=== PATIENT | female | born 1995 | race Caucasian/White ===

== ENCOUNTER 2018-06-06 04:17 | Emergency (ER) | payer OTHER, SELFPAY ==
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
[2018-06-06] MEDS ORDERED: MUPIROCIN 2% OINT 22GM TUBE TOP ONE (05:22)
[2018-06-06] MEDS ORDERED: DOXYCYCLINE 100 MG CAP PO ONE (05:22)
[2018-06-06] MEDS ORDERED: SMZ./TMP. 800/160 MG TABLET ONE (05:22)
[2018-06-06] MEDS ORDERED: TETANUS & DIPHTHERIA TOX,ADULT 0.5 ML VIAL ONE (05:22)
[2018-06-06 05:43] LABS: Urine Blood TRACE (NEG); Urine Glucose NEGATIVE (NEG); Urine Protein NEGATIVE (NEG); Urine Specific Gravity >1.030 (1.005-1.030); Urine pH 5.5 (5.0-7.0)
== END 2018-06-06 05:27 | disposition home or self-care (01) ==
LOC: ER 04:17
DX: L03.113 Cellulitis of right upper limb (principal); T22.211A Burn of second degree of right forearm, initial encounter; X08.8XXA Exposure to other specified smoke, fire and flames, initial encounter; F17.210 Nicotine dependence, cigarettes, uncomplicated; Z23 Encounter for immunization
CPT/HCPCS: 81003; 81025; 90471; 90714; 99284

== ENCOUNTER 2018-06-23 03:57 | Emergency (ER) | payer SELFPAY ==
[2018-06-23 04:23] LABS: Absolute Lymphocytes (CBC) 2.1 K/uL (0.7-4.9); Absolute Monocytes 0.3 K/uL (0.1-1.3); Absolute Neutrophil 5.5 K/uL (1.8-8.0); Basophils % 0.8 % (0-1.3); Eosinophils % 0.6 % (0-4.4); Hematocrit 39.1 % (36.0-45.0); Lymphocytes % 26.2 % (15.3-44.8); Monocytes % 3.6 % (3.3-12.3); RBC Red Blood Cell Count 4.67 M/uL (3.86-4.86)
[2018-06-23] MEDS ORDERED: ONDANSETRON 4 MG/2 ML VIAL ONE (04:28)
[2018-06-23] MEDS ORDERED: NA CHLORIDE 0.9% 1,000 ML ONE (04:30)
[2018-06-23 04:33] LABS: Protime INR 1.1
[2018-06-23 04:43] LABS: ALT/SGPT 30 U/L (12-78); AST/SGOT 21 U/L (15-37); Alkaline Phosphatase 74 U/L (45-117); BUN Blood Urea Nitrogen 6 mg/dL (7-18); Bicarbonate 26 mmol/L (21-32); Bilirubin Direct < 0.1 mg/dL (0-0.2); Bilirubin Total 0.3 mg/dL (0.2-1.0); Glucose Level 121 mg/dL (74-106); Potassium 3.6 mmol/L (3.5-5.1); Protein, Total 8.3 g/dL (6.4-8.2); Sodium Level 144 mmol/L (136-145)
[2018-06-23 04:48] LABS: Barbiturates NEGATIVE (NEGATIVE); Benzodiazepines NEGATIVE (NEGATIVE); Cocaine NEGATIVE (NEGATIVE); METHAMPHETAM NEGATIVE (NEGATIVE); Methadone NEGATIVE (NEGATIVE); Opiates NEGATIVE (NEGATIVE); Phencyclidine NEGATIVE (NEGATIVE); THC Cannibis NEGATIVE (NEGATIVE)
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
--- NOTE | 2018-06-23 05:01 | EDPHYS ---
Physician Documentation [facility] Name: Tila Slater Age: 23 yrs Sex: Female : 1995 Arrival Date: 06/23/2018 Time: 03:59 Bed 4 Private MD: ED Physician Rashi Cervantes HPI: 06/23 04:12 This 23 yrs old Female presents to ER via Wheelchair with complaints of tw4 SYNCOPE AFTER DRINKING. 04:12 The patient has experienced syncope. tw4 Historical: - Allergies: 04:02 No Known Allergies; tl2 - Home Meds: 04:02 None [Active]; tl2 - PMHx: 04:02 None; tl2 - PSHx: 04:02 None; tl2 - Immunization history:: Adult Immunizations up to date. - Social history:: Smoking status: Patient uses tobacco products, denies chronic smoking, but will smoke occasionally, Patient uses alcohol. - Ebola Screening: : No symptoms or risks identified at this time. ROS: 04:17 Neuro: Positive for syncope, Negative for altered mental status, dizziness, gait tw4 disturbance, headache, tinnitus, tremor, weakness. 04:17 Constitutional: Negative for fever, chills, and weight loss, Cardiovascular: Negative tw4 for chest pain, palpitations, and edema, Respiratory: Negative for shortness of breath, cough, wheezing, and pleuritic chest pain, Back: Negative for injury and pain, MS/Extremity: Negative for injury and deformity, Skin: Negative for injury, rash, and discoloration. 04:17 Abdomen/GI: Positive for abdominal pain, nausea and vomiting, nausea, vomiting, and diarrhea, nausea, vomiting. Exam: 04:17 Constitutional: This is a well developed, well nourished patient who is awake, alert, tw4 and in no acute distress. Head/Face: Normocephalic, atraumatic. Chest/axilla: Normal chest wall appearance and motion. Nontender with no deformity. No lesions are appreciated. Cardiovascular: Regular rate and rhythm with a normal S1 and S2. No gallops, murmurs, or rubs. Normal PMI, no JVD. No pulse deficits. Respiratory: Lungs have equal breath sounds bilaterally, clear to auscultation and percussion. No rales, rhonchi or wheezes noted. No increased work of breathing, no retractions or nasal flaring. Abdomen/GI: Soft, non-tender, with normal bowel sounds. No distension or tympany. No guarding or rebound. No evidence of tenderness throughout. MS/ Extremity: Pulses equal, no cyanosis. Neurovascular intact. Full, normal range of motion. Neuro: Awake and alert, GCS 15, oriented to person, place, time, and situation. Cranial nerves II-XII grossly intact. Motor strength 5/5 in all extremities. Sensory grossly intact. Cerebellar exam normal. Normal gait. Vital Signs: 04:02 BP 138 / 114; Pulse 110; Resp 22; Temp 97.7(O); Pulse Ox 100% on R/A; Weight 113.4 kg; tl2 Height 5 ft. 5 in. (165.10 cm); Pain 7/10; 05:16 BP 122 / 102; Pulse 104; Resp 18; Pulse Ox 100% on R/A; tl2 04:02 Body Mass Index 41.60 (113.40 kg, 165.10 cm) tl2 MDM: 03:59 Patient medically screened. tw4 04:17 Differential Diagnosis: aortic aneurysm, cardiac arrhythmia, drug effect, emotional tw4 response, GI bleed, idiopathic syncope. Data reviewed: vital signs, nurses notes. Counseling: I had a detailed discussion with the patient and/or guardian regarding: the historical points, exam findings, and any diagnostic results supporting the discharge/admit diagnosis. 06/23 03:59 Order name: Acetaminophen; Complete Time: 04:57 [facility] 06/23 04:58 Interpretation: Normal except: ACETA < 2.0. 06/23 03:59 Order name: Basic Metabolic Panel; Complete Time: 04:58 06/23 04:58 Interpretation: Normal except: CL 111; GLUC 121; BUN 6. 06/23 03:59 Order name: CBC with Diff; Complete Time: 04:58 06/23 04:58 Interpretation: Within normal limits. 06/23 03:59 Order name: ETOH Level; Complete Time: 04:58 06/23 04:58 Interpretation: Normal except: ETOH 171. 06/23 03:59 Order name: Hepatic Function; Complete Time: 04:58 [facility] 06/23 04:58 Interpretation: Normal except: TP 8.3; GLOB 4.3; A/G 0.9. 06/23 03:59 Order name: PT-INR; Complete Time: 04:58 06/23 04:58 Interpretation: Normal except: PT 12.9. 06/23 03:59 Order name: Ptt, Activated; Complete Time: 04:58 06/23 04:59 Interpretation: Within normal limits: PTT 32.1. 06/23 03:59 Order name: Salicylate; Complete Time: 04:58 06/23 04:58 Interpretation: Normal except: PRINCE 2.4. 06/23 03:59 Order name: Urine Drug Screen; Complete Time: 04:59 06/23 04:59 Interpretation: Within normal limits. 06/23 03:59 Order name: EKG; Complete Time: 04:00 06/23 03:59 Order name: EKG - Nurse/Tech; Complete Time: 04:25 06/23 03:59 Order name: IV Saline Lock; Complete Time: 04:07 06/23 03:59 Order name: Labs collected and sent; Complete Time: 04:07 06/23 03:59 Order name: Urine Dipstick-Ancillary (obtain specimen); Complete Time: 04:25 4 EC:17 Rate is 90 beats/min. Rhythm is regular with Right bundle branch block. QRS [place] is tw4 Normal. ME interval is normal. QRS interval is normal. No Q waves. T waves are Normal. No ST changes noted. Clinical impression: NSR w/ Non-specific ST/T Changes. Interpreted by me. Reviewed by me. Administered Medications: 04:15 CANCELLED (Duplicate Order): Zofran 4 mg IVP once; over 2 minutes bb 04:16 CANCELLED (Duplicate Order): NS 0.9% 1000 ml IV at 1 bolus Per protocol; 1000 mL bolus bb 04:25 Drug: Zofran 4 mg Route: IVP; Site: left antecubital; bb 05:20 Follow up: Response: No adverse reaction tl2 04:25 Drug: NS 0.9% 1000 ml Route: IV; Rate: 1 bolus; Site: left antecubital; bb 05:19 Follow up: IV Status: Completed infusion; IV Intake: 1000ml tl2 Disposition: 06/23/18 05:00 Discharged to Home. Impression: Alcohol use, unspecified with intoxication. - Condition is Stable. - Discharge Instructions: Alcohol Intoxication. - Medication Reconciliation Form, Thank You Letter, Antibiotic Education, Prescription Opioid Use form. - Follow up: Private Physician; When: Upon discharge from the Emergency Department; Reason: If symptoms return, Recheck today's complaints, Continuance of care. - Problem is new. - Symptoms have improved. Signatures: Dispatcher [employer] EDMS Palak Oneal RN RN bb Amina Albright RN RN tl2 Rashi Cervantes MD MD tw4 Corrections: (The following items were deleted from the chart) 04:15 04:15 Zofran 4 mg IVP once; over 2 minutes ordered. tw bb 04:16 04:15 NS 0.9% 1000 ml IV at 1 bolus Per protocol; 1000 mL bolus ordered. tw bb 04:23 04:17 Constitutional: Negative for fever, chills, and weight loss, Eyes: Negative for tw4 injury, pain, redness, and discharge, Cardiovascular: Negative for chest pain, palpitations, and edema, Respiratory: Negative for shortness of breath, cough, wheezing, and pleuritic chest pain, Abdomen/GI: Negative for abdominal pain, nausea, vomiting, diarrhea, and constipation, Back: Negative for injury and pain, MS/Extremity: Negative for injury and deformity, Skin: Negative for injury, rash, and discoloration, tw4 05:21 05:00 06/23/2018 05:00 Discharged to Home. Impression: Alcohol use, unspecified with tl2 intoxication. Condition is Stable. Forms are Medication Reconciliation Form, Thank You Letter, Antibiotic Education, Prescription Opioid Use. Follow up: Private Physician; When: Upon discharge from the Emergency Department; Reason: If symptoms return, Recheck today's complaints, Continuance of care. Problem is new. Symptoms have improved. tw4
--- NOTE | 2018-06-23 07:52 | EKG ---
Test Date: 2018-06-23 Test Time: 04:21:02 Senior C Software Developer: DAREK MEASUREMENT RESULTS: Intervals: Rate: 90 MI: 152 QRSD: 94 QT: 358 QTc: 437 [place]: P: 61 MI: 152 QRS: 86 T: 51 INTERPRETIVE STATEMENTS: Normal sinus rhythm with sinus arrhythmia Incomplete right bundle branch block Borderline ECG No previous ECG available for comparison Electronically Signed On 06-23-18 07:52:18 CDT by Boone Lucero
== END 2018-06-23 05:21 | disposition home or self-care (01) ==
LOC: ER 03:57
DX: F10.929 Alcohol use, unspecified with intoxication, unspecified (principal); R55 Syncope and collapse; Z72.0 Tobacco use
CPT/HCPCS: 36415; 51702; 80048; 80076; 80307; 80320; 80329; 85025; 85610; 85730; 93005; 96361; 96374; 99284; J2405; J7030

== ENCOUNTER 2023-11-10 20:02 | Emergency (ER) | payer SELFPAY ==
--- OUTSIDE RECORDS SUMMARY | 2023-11-10 20:05 | XMS REPORT | Continuity of Care Document ---
Author Name Unknown Address [address] [facility] [place], [place] [id number] [place] [address] thconnect Address [address] [facility] [place] [address] Care Team Providers Care Hull Grinder Name Role Phone TIFFANIE PAUL Primary Care Physician Unavaila ble [facility] Attending Clinician BARRON Alberts Attending Clinician Unavaila ble BARRON AGUIRRE Attending Clinician Unavaila ble [facility] Admitting Clinician Unavail able Payers Payer Name Policy Type Policy Number Effective Date Expirati on Date Source Allergies, Adverse Reactions, Alerts Allergy Name Allergy Type Status Severity Reaction(s) Onset Date Inactive Date Treating Clinician Comments Source NO KNOWN ALLERGIE S Drug Class Active [facility] Encounters Start Date/Time End Date/Time Encounter Type Admission Type Attending [facility] Facility Care Department Encounter ID Source 2023-03-11 15:02:00 2023-03-11 15:02:00 Outpatient [facility] [id number] Farzad Neto [place] 2022-12-11 00:00:00 2022-12-11 00:00:00 Outpatient [facility] PRIV PRIV [id number] [facility] 2022-10-12 09:09:53 2022-10-12 09:09:53 Outpatient [facility] [id number] Farzad Neto [place] 2022-10-11 09:39:38 2022-10-11 09:39:38 Outpatient [facility] [id number] Farzad Niño 2021-05-11 08:00:00 2021-05-11 08:00:00 Outpatient R BARRON AGUIRRE CHERYAL [facility] [id number] [facility] 2021-05-11 08:00:00 2021-05-11 08:00:00 Outpatient BARRON DIAL CHERYAL [facility] [id number] [facility] Results Test Description Test Time Test Comments Results Result Co mments Source TRICHOMONAS, NAAT, [id number] 13:35:43* Test Item Value Reference Range Interpretation Comme nts TRICHOMONAS, NAAT (test code = 35830) NEGATIVE NEGATIVE IMPORTANT NO JACOB: SEE ANNOUNCEMENT AT [email or web address] [email or web address] Note: Assay methodology is nucleic acid amplification by sign writer letterer or painter mediated amplification (TMA) and Hybridization Protection Assay (HPA) utilizing the [employer] APTIMA platform. A negative result does not exclude low level infection, specimensampling error, or collection error. CT/NG, NAAT, [id number] 13:35:00* Test Item Value Reference Range Interpretation Comme nts GONORRHEA, NAAT (test code = 16967) NEGATIVE NEGATIVE IMPORTANT NO JACOB: SEE ANNOUNCEMENT AT [email or web address] Red Wagon Technologies/Arpit Progressive CaresUrineKit Note: Assay methodology is nucleic acid amplification by sign writer letterer or painter mediated amplification (TMA) utilizing the Aptima Combo 2 Assay. CHLAMYDIA, NAAT (test code = 62368) NEGATIVE NEGATIVE IMPORTANT NO JACOB: SEE ANNOUNCEMENT AT [email or web address] Red Wagon Technologies/Arpit Progressive CaresUrineKit Note: Assay methodology is nucleic acid amplification by sign writer letterer or painter mediated amplification (TMA) utilizing the Aptima Combo 2 Assay. UNLESS OTHERWISE INDICATED, ALL TESTING PERFORMED [facility] [address] [place] [address] BIT SHARPENER OPERATOR: PHILLIP MELENDEZ M.D. CLIA NUMBER [id number] [place]. [id number] CHLAMYDIA, NAAT, [id number] 18:15:43* Test Item Value Reference Range Interpretation Comme nts CHLAMYDIA, NAAT (test code = 28042) POSITIVE NEGATIVE A IMPORTANT NO JACOB: SEE ANNOUNCEMENT AT [email or web address] heCobasUrineKit Note: Assay methodology is nucleic acid amplification by sign writer letterer or painter mediated amplification (TMA) utilizing the Aptima Combo 2 Assay. GONORRHEA, NAAT, [id number] 18:15:43* Test Item Value Reference Range Interpretation Comme nts GONORRHEA, NAAT (test code = 50106) NEGATIVE NEGATIVE IMPORTANT NO JACOB: SEE ANNOUNCEMENT AT [email or web address] heCobasUrineKit Note: Assay methodology is nucleic acid amplification by sign writer letterer or painter mediated amplification (TMA) utilizing the Aptima Combo 2 Assay. UNLESS OTHERWISE INDICATED, ALL TESTING PERFORMED [facility], [facility]. [address] [place] [address] BIT SHARPENER OPERATOR: PHILLIP MELENDEZ M.D. [place] NUMBER [id number] [place]. [id number] PAP TEST, THINPREP, [id number] 18:01:32* Test Item Value Reference Range Interpretation Comme nts SOURCE: (test code = 8001) Cervical SLIDES: (test code = 8011) 1 LMP: (test code = 8021) 06/24/2021 SPECIMEN ADEQUACY: (test code = 25575) (NOTE) Satisfactory for evaluation. Endocervical cells/transformation zone component present. INTERPRETATION: (test code = 90432) NILM/NO EPITH. ABNORMALITY;SEE BELOW --- - NEGATIVE FOR INTRAEPITHELIAL LESION OR MALIGNANCY (NILM) ---- OTHER COMMENTS: (test code = 8081) (NOTE) Trichomonas vagi nalis present. WEBMASTER : (test code = 8101) ALIYAH Starks(A [facility] LOCATION: (test code = 15127) (NOTE) Specimens proces sed and interpreted at [facility], [address] [place], [place] [address], , CLIA: [id number] CPT: (test code = 8140) (NOTE) [address]808 UNLESS OTH ERWISE INDICATED, COMPUTER AIDED AND WEBMASTER SCREENING PERFORMED. The Pap test is a screening test with an inherent, but low probability of error. Your patient should be reminded to consult you immediately if she experiences any suspicious signs or symptoms, regardless of her Pap test result. An alternate report format containing images or consolidated prior Pap history is available as applicable. UNLESS OTHERWISE INDICATED, ALL TESTING PERFORMED [facility], [facility]. [address] [place] [address] BIT SHARPENER OPERATOR: PHILLIP MELENDEZ M.D. CLIA NUMBER [id number] [place]. [id number] VAGINAL PATHOGENS DNA [id number] 14:10:13* Test Item Value Reference Range Interpretation Comme nts ALLEN SPECIES (test code = 85555) NEGATIVE NEGATIVE G. VAGINALIS (test code = 66307) NEGATIVE NEGATIVE T. VAGINALIS (test code = 05131) POSITIVE NEGATIVE A HIV 1/2 4TH GEN, RFLX [id number] 03:35:02* Test Item Value Reference Range Interpretation Comme nts HIV 1/2 4TH GEN, RFLX CONF ( test code = 3514) NON-REACTIVE NON-REACTIVE HEPATITIS PANEL, [id number] 03:35:02* Test Item Value Reference Range Interpretation Comme nts HEPATITIS A IgM (test code = 60334) NON-REACTIVE NON-REACTIVE HEPATITIS B CORE IgM (test code = 4644) NON-REACTIVE NON-REACTIVE HEPATITIS B SURF AG (test code = 2739) NON-REACTIVE NON-REACTIVE HEPATITIS C ANTIBODY (test code = 4675) NON-REACTIVE NON-REACTIVE INTERPRETATION HEPATITIS A: (test code = 2552) (NOTE) Hepatitis A serology shows no evidence of acute hepatitis A. INTERPRETATION HEPATITIS B: (test code = 06675) (NOTE) Hepatitis B serology shows no evidence of acute hepatitis B andno indication of exposure to hepatitis B virus in the previous sharmin eight months. INTERPRETATION HEPATITIS C: (test code = 60371) (NOTE) Hepatitis C serology shows no evidence of exposure to hepatitisC virus at this time. It can take up to 12 months after exposure tothe hepatitis C virus for antibodies to become detectable in the blood in certain patients. [id number] 03:31:45* Test Item Value Reference Range Interpretation Comme nts RPR RESULT (test code = 3501) NON-REACTIVE NON-REACTIVE RPR TITER (test code = 3500) NOT INDIC. TITER NOT INDIC.
[2023-11-10] MEDS ORDERED: FAMOTIDINE 20 MG/2 ML VIAL IV ONE (20:08)
[2023-11-10] MEDS ORDERED: DIPHENHYDRAMINE 50 MG/ML VIAL ONE (20:08)
[2023-11-10] MEDS ORDERED: METHYLPREDNISOLONE 125 MG INJ ONE (20:08)
[2023-11-10] MEDS ORDERED: ALBUTEROL 2.5 MG/3 ML NEB SOL ONE (20:08)
[2023-11-10] MEDS ORDERED: NA CHLORIDE 0.9% 1,000 ML ONE ×2 (20:09→22:28)
[2023-11-10] MEDS ORDERED: EPINEPHRINE 1 MG/ML VIAL ONE (20:26)
[2023-11-10 20:29] LABS: Absolute Basophils 0.1 K/uL (0-0.5); Absolute Lymphocytes (CBC) 1.1 K/uL (0.7-4.9); Absolute Monocytes 0.5 K/uL (0.1-1.3); Absolute Neutrophil 17.1 K/uL (1.8-8.0); Basophils % 0.3 % (0-1.3); Eosinophils % 0.1 % (0-4.4); Hematocrit 36.8 % (36.0-45.0); Hemoglobin 12.5 g/dL (12.0-15.0); Lymphocytes % 5.7 % (15.3-44.8); MCH 28.8 pg (27.0-35.0); MCV 84.7 fL (80-100); MPV 9.5 fL (7.6-11.3); Monocytes % 2.8 % (3.3-12.3); Neutrophils % 91.1 % (41.7-73.7); Nucleated Red Blood Cells % 0.1 % (0-0); Platelets 236 thou/uL (152-406); RBC Red Blood Cell Count 4.35 M/uL (3.86-4.86); Red Cell Distribution Width 14.9 % (12.1-15.2)
[2023-11-10 20:36] LABS: White Blood Cell Scan OK (OK)
[2023-11-10 20:37] LABS: Blood Morphology Comment NOT SEEN (NOT SEEN); Platelet Estimate ADEQ
[2023-11-10 20:49] LABS: ALT/SGPT 32 U/L (13-56); AST/SGOT 16 U/L (15-37); Albumin 3.9 g/dL (3.4-5.0); Albumin/Globulin Ratio 0.9 (1.1-1.8); Alkaline Phosphatase 62 U/L (45-117); Anion Gap 7.4 mEq/L (5.0-15.0); BUN Blood Urea Nitrogen 13 mg/dL (7-18); Bicarbonate 25 mEq/L (21-32); Bilirubin Direct 0.2 mg/dL (0-0.2); Bilirubin Indirect, Calculated 0.7 mg/dL (0.2-0.8); Bilirubin Total 0.9 mg/dL (0.2-1.0); Globulin 4.4 g/dL (2.3-3.5); Glomerular Filtration Rate 83 ml/min (=/>90); Glucose Level 111 mg/dL (74-106); Magnesium 1.8 mg/dL (1.6-2.4); Potassium 3.4 mEq/L (3.5-5.1); Protein, Total 8.3 g/dL (6.4-8.2); Sodium Level 134 mEq/L (136-145)
[2023-11-10 21:01] LABS: Troponin High Sensitivity < 3.0 pg/mL (<58.9)
--- NOTE | 2023-11-10 21:38 | RAD REPORT ---
Procedure: Chest Single View History: Shortness of breath Comparison: 2009 The lungs appear clear of acute infiltrate. No significant pleural effusion noted. The heart is normal size. IMPRESSION: No acute abnormality is displayed.
[2023-11-10] MEDS ORDERED: ACETAMINOPHEN 500 MG TAB ONE (22:28)
[2023-11-10] MEDS ORDERED: CEFEPIME 2 GM VIAL ONE (22:28)
[2023-11-10] MEDS ORDERED: NA CHLORIDE 0.9% 100 ML ONE (22:29)
[2023-11-10 22:38] LABS: PT Prothrombin Time 14.4 SECONDS (9.4-12.5); PTT, Activated Partial Thromb 37.8 SECONDS (24.3-36.9); Protime INR 1.3
--- NOTE | 2023-11-11 00:06 | RAD REPORT ---
EXAM: CT Angiography Chest With Intravenous Contrast CLINICAL HISTORY: The patient is 28 years old and is Female; dyspnea, tachycardia TECHNIQUE: Axial computed tomographic angiography images of the chest with intravenous contrast. Sagittal an d coronal reformatted images were created and reviewed. This CT exam was performed using one or more of the following dose reduction techniques: automated exposure control, adjustment of the mA a nd/or kV according to patient size, and/or use of iterative reconstruction technique. MIP reconstructed images were created and reviewed. COMPARISON: No relevant prior studies available. FINDINGS: ARTIFACTS: The exam is suboptimal secondary to motion artifact. PULMONARY ARTERIES: There are no obvious filling defects identified within the pulmonary arteries to suggest pulmonary embolism. AORTA: No acute findings. No thoracic aortic aneurysm. LUNGS: Minimal dependent densities in the lung bases are present. The lungs are otherwise well- inflated and clear. The tracheobronchial tree is patent. Calcified granuloma within the right lower lobe is present. No mass. No consolidation. PLEURAL SPACE: Unremarkable. No significant effusion. No pneumothorax. HEART: Unremarkable. No cardiomegaly. No significant pericardial effusion. No evidence of R V dysfunction. BONES/JOINTS: No acute fracture. No dislocation. SOFT TISSUES: Unremarkable. LYMPH NODES: Unremarkable. No enlarged lymph nodes. LIVER: The liver is enlarged. SPLEEN: The spleen is enlarged. IMPRESSION: No evidence of pulmonary embolism. Electronically signed by: Kathy Mijares MD 11/10/2023 11:54 PM CDT Due to temporary technical issues with the [employer] reporting system, reports are being mariaan d by the in-house radiologist without review as a courtesy to ensure prompt reporting the interpreting radiologist is fully responsible for the content of the report. Transcribed Date/Time: 11/11/2023 12:06 AM
--- NOTE | 2023-11-11 00:16 | EDPHYS ---
Physician Documentation [facility] Name: Tila Slater Age: 28 yrs Sex: Female : 1995 Arrival Date: 11/10/2023 Time: 20:02 Bed 18 Private MD: ED Physician Awais Saavedra HPI: 11/09 22:57 This 28 yrs old Female presents to ER via Wheelchair with complaints of Allergic rt Reaction. 22:57 Patient presents to the ED with reported allergic reaction. Patient was cleaning a rt dirty home, when she started having a scratchy sensation to her throat as well as difficulty breathing and feeling warm. The patient reports a cough, denies other acute complaints, symptoms are moderate in severity, no other aggravating or alleviating factors.. 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 - Infectious Disease History:: Denies. - Social history:: Smoking status: Reported history of juuling and/or vaping. - Family history:: not pertinent. ROS: 22:57 Constitutional: Negative for fever, chills, and weight loss, Cardiovascular: Negative rt for chest pain, palpitations, and edema, Abdomen/GI: Negative for abdominal pain, nausea, vomiting, diarrhea, and constipation, MS/Extremity: Negative for injury and deformity, Skin: Negative for injury, rash, and discoloration, Neuro: Negative for headache, weakness, numbness, tingling, and seizure, 22:57 Respiratory: Positive for cough, shortness of breath, Exam: 22:57 Constitutional: This is a well developed, well nourished patient who is awake, alert, rt and in no acute distress. Head/Face: Normocephalic, atraumatic. Chest/axilla: Normal chest wall appearance and motion. Nontender with no deformity. No lesions are appreciated. Cardiovascular: Regular rate and rhythm with a normal S1 and S2. No gallops, murmurs, or rubs. Normal PMI, no JVD. No pulse deficits. Abdomen/GI: Soft, non-tender, with normal bowel sounds. No distension or tympany. No guarding or rebound. No evidence of tenderness throughout. Skin: Warm, dry with normal turgor. Normal color with no rashes, no lesions, and no evidence of cellulitis. MS/ Extremity: Pulses equal, no cyanosis. Neurovascular intact. Full, normal range of motion. 22:57 ENT: Hoarse voice, no oropharyngeal swelling. 22:57 ECG was reviewed by the Attending Physician. 22:57 Respiratory: Faint wheezes heard, mild respiratory distress, Vital Signs: 20:20 BP 176 / 76; Pulse 124; Resp 18; Temp 98.6; Pulse Ox 93% ; Weight 115 kg; Height 5 ft. vc1 6 in. ; Pain 5/10; 21:32 BP 143 / 65; Pulse 124; Resp 18; Pulse Ox 97% on R/A; Pain 5/10; rg5 21:59 Temp 102.7(O); ty 22:10 BP 124 / 62; Pulse 118; Resp 19; Temp 102.7; Pulse Ox 98% on R/A; Pain 0/10; rg5 23:45 BP 133 / 46; Pulse 104; Resp 17; Temp 98.3(O); Pulse Ox 99% on R/A; Pain 0/10; rg5 20:20 Body Mass Index 40.92 (115.00 kg, 167.64 cm) vc1 20:20 Pain Scale: Adult vc1 21:32 Pain Scale: Adult rg5 22:10 Pain Scale: Adult rg5 23:45 Pain Scale: Adult rg5 [place] Coma Score: 20:20 Eye Response: spontaneous(4). Motor Response: obeys commands(6). Verbal Response: rg5 oriented(5). Total: 15. MDM: 20:12 Patient medically screened. rt 11/10 01:13 Differential diagnosis: Anaphylaxis, pulmonary embolus, pneumonia, viral syndrome. Data rt reviewed: vital signs, nurses notes, lab test result(s), EKG, radiologic studies. Consideration of Admission/Observation Escalation of care including admission/observation considered. Vital signs normalized after treating the fever. There are no signs of a bacterial etiology, will cover empirically with antibiotics anyways. Patient states that her symptoms have completely resolved and she is desirous of discharge. Informed patient of findings of hepatosplenomegaly, suspect this is viral in nature, patient structured to follow-up as an outpatient. Strict return precautions discussed.. I considered the following discharge prescriptions or medication management in the emergency department Medications were administered in the Emergency Department. See MAR. Independent interpretation of the following test(s) in the Emergency Department CT Scan: My interpretation is No pneumonia seen on interpretation of CT scan images. Care significantly affected by the following chronic conditions: Asthma. Counseling: I had a detailed discussion with the patient and/or guardian regarding the historical points, exam findings, and any diagnostic results supporting the discharge/admit diagnosis, lab results, radiology results, the need for outpatient follow up, to return to the emergency department if symptoms worsen or persist or if there are any questions or concerns that arise at home. Response to treatment: the patient's symptoms have markedly improved after treatment. 11/09 20:14 Order name: Basic Metabolic Panel; Complete Time: 21:02 rt 11/09 20:14 Order name: CBC with Diff; Complete Time: 21:02 rt 11/09 20:14 Order name: LFT's; Complete Time: 21:02 rt 11/09 20:14 Order name: Magnesium; Complete Time: 21:02 rt 11/09 20:14 Order name: Troponin HS; Complete Time: 21:02 rt 11/09 20:37 Order name: CBC Smear Scan; Complete Time: 21:02 EDMS 11/09 22:08 Order name: Blood Culture Adult (2) rt 11/09 22:08 Order name: Lactate w/ 2H reflex if indic.; Complete Time: 22:50 rt 11/09 22:08 Order name: Protime (+inr); Complete Time: 22:50 rt 11/09 22:08 Order name: Ptt, Activated; Complete Time: 22:50 rt 11/09 20:14 Order name: XRAY Chest (1 view); Complete Time: 21:43 rt 11/09 22:08 Order name: CT Chest For PE Angio rt 11/09 20:14 Order name: EKG; Complete Time: 20:15 rt 11/09 20:14 Order name: Cardiac monitoring; Complete Time: 20:38 rt 11/09 20:14 Order name: EKG - Nurse/Tech; Complete Time: 21:04 rt 11/09 20:14 Order name: IV Saline Lock; Complete Time: 20:38 rt 11/09 20:14 Order name: Labs collected and sent; Complete Time: : rt 11/09 20:14 Order name: O2 Per Protocol; Complete Time: : rt 11/09 20:14 Order name: O2 Sat Monitoring; Complete Time: : rt 11/09 22:08 Order name: Accucheck; Complete Time: 22:21 rt 11/09 22:08 Order name: IV Saline Lock - Large Bore; Complete Time: 22: rt 11/09 22:08 Order name: Vital Signs; Complete Time: 22:20 rt EC/30 22:57 Rate is 132 beats/min. Rhythm is regular, Sinus tachycardia with No ectopy. Right axis rt deviation noted. NC interval is normal. QRS interval is normal. QT interval is normal. No Q waves. No ST changes noted. Interpreted by me. Administered Medications: 20:15 Drug: Famotidine IVP 20 mg IVP once; dilute with 10 mL 0.9% NaCl; give over 2 minutes rg5 Route: IVP; Site: right antecubital; 21:30 Follow up: Response: No adverse reaction rg5 20:15 Drug: MethylPrednisoLONE IVP 125 mg IVP once Route: IVP; Site: right antecubital; rg5 22:30 Follow up: Response: No adverse reaction rg5 20:15 Drug: Albuterol Inhalation 7.5 mg Inhalation once Route: Inhalation; rg5 20:15 Drug: NS 0.9% IV 1000 ml IV at 1 bolus Per protocol; 1000 mL bolus Route: IV; Rate: 1 rg5 bolus; Site: right antecubital; 21:00 Follow up: IV Status: Completed infusion; IV Intake: 1000ml rg5 20:20 Drug: EPINEPHrine 1:1000 Sub-Q 1:1,000 0.3 ml Sub-Q once Route: Sub-Q; Site: right rg5 lower abdomen; 22:00 Follow up: Response: No adverse reaction rg5 21:03 Drug: diphenhydrAMINE IVP 50 mg IVP once Route: IVP; Site: right antecubital; rg5 21:30 Follow up: Response: No adverse reaction rg5 22:25 Drug: Acetaminophen PO 1000 mg PO once Route: PO; rg5 23:25 Follow up: Response: No adverse reaction; Temperature is decreased rg5 22:35 Drug: NS 0.9% IV 1000 ml IV at 1 bolus Per protocol; 1000 mL bolus Route: IV; Rate: 1 rg5 bolus; Site: right antecubital; 11/10 00:34 Follow up: IV Status: Completed infusion; IV Intake: 1000ml rg5 11/09 22:37 Drug: Cefepime IVPB 2 grams IVPB at 200 ml/hr once over 30 mins; (mix in NS 100 mL) rg5 Route: IVPB; Rate: 200 ml/hr; Infused Over: 30 mins; Site: right antecubital; 11/10 00:33 Follow up: IV Status: Completed infusion; IV Intake: 100ml rg5 Disposition Summary: 11/11/23 00:16 Discharge Ordered Notes: Location: Home rt Problem: new rt Symptoms: have improved rt Condition: Stable rt Diagnosis - Fever, unspecified rt - Dyspnea rt - Hepatomegaly, not elsewhere classified rt - Splenomegaly, not elsewhere classified rt Followup: rt - With: Private Physician - When: 2 - 3 days - Reason: Discharge Instructions: - Discharge Summary Sheet rt - Anaphylactic Reaction, Adult rt - Shortness of Breath, Adult rt - Enlarged Spleen rt - Hepatomegaly rt Forms: - Medication Reconciliation Form rt - Antibiotic Education rt - Prescription Opioid Use rt - Patient Portal Instructions rt - Leadership Thank You Letter rt Prescriptions: - EpiPen 0.3 mg/0.3 mL Injection Auto-Injector - administer 0.3 milligram INTRAMUSCULAR route once as a single dose; 1 Each; rt Refills: 0, Product Selection Permitted - Prednisone 20 mg Oral Tablet - take 2 tablets ORAL route once daily for 5 days; 10 tablet; Refills: 0, Product rt Selection Permitted - levofloxacin 750 mg Oral tablet - take 1 tablet ORAL route once daily; 7 tablet; Refills: 0, Product Selection rt Permitted Signatures: Dispatcher [employer] Serina Ramirez RN RN vc1 Awais Saavedra MD MD rt Ray Clancy, RN RN rg5
--- NOTE | 2023-11-11 00:16 | ER ---
Nurse's Notes [facility] Name: Tila Slater Age: 28 yrs Sex: Female : 1995 Arrival Date: 11/10/2023 Time: 20:02 Bed 18 Private MD: Diagnosis: Fever, unspecified;Dyspnea;Hepatomegaly, not elsewhere classified;Splenomegaly, not elsewhere classified Presentation: 11/09 20:20 Chief complaint: Patient states: CLEANING A HOUSE, STARTED HAVING TROUBLE BREATHING AND vc1 FEELING REALLY HOT. Coronavirus screen: Client denies travel out of the [place] in the last 14 days. At this time, the client does not indicate any symptoms associated with coronavirus-19. Ebola Screen: Patient negative for fever greater than or equal to 101.5 degrees Fahrenheit, and additional compatible Ebola Virus Disease symptoms Patient denies exposure to infectious person. Patient denies travel to an Ebola-affected area in the 21 days before illness onset. No symptoms or risks identified at this time. Onset: The symptoms/episode began/occurred acutely, suddenly. Anaphylaxis evaluation, the patient reports or I have noted the following symptoms which indicate a significant risk of anaphylaxis: chest pain lump in the throat which may suggest laryngeal edema shortness of breath . The patient has been moved to a treatment room and the charge nurse or attending physician has been notified. Initial Sepsis Screen: Does the patient meet any 2 criteria? No. Patient's initial sepsis screen is negative. Does the patient have a suspected source of infection? No. Patient's initial sepsis screen is negative. Risk Assessment: Do you want to hurt yourself or someone else? Patient reports no desire to harm self or others. Onset of symptoms was November 10, 2023. 20:20 Method Of Arrival: Wheelchair vc1 20:20 Acuity: GRISEL 2 vc1 Triage Assessment: 20:24 General: Appears distressed, well groomed, well developed, Behavior is anxious. Pain: vc1 Complains of pain in UNDER LEFT BREAST. EENT: No deficits noted. No signs and/or symptoms were reported regarding the EENT system. Reports. Neuro: Level of Consciousness is awake, alert, obeys commands, Oriented to person, place, time, situation, Appropriate for age. Cardiovascular: Capillary refill < 3 seconds Chest pain. Respiratory: Reports shortness of breath labored breathing Airway is compromised Respiratory effort is even, labored, Respiratory pattern is symmetrical, tachypnea the patient has moderate shortness of breath. Derm: Skin is intact, is healthy with good turgor, Skin is dry, Skin is normal, Skin temperature is warm. Musculoskeletal: Circulation, motion, and sensation intact. Range of motion: intact in all extremities. 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 - Infectious Disease History:: Denies. - Social history:: Smoking status: Reported history of juuling and/or vaping. - Family history:: not pertinent. Screenin:20 [facility] ED Fall Risk Assessment (Adult) History of falling in the last 3 months, rg5 including since admission No falls in past 3 months (0 pts) Confusion or Disorientation No (0 pts) Intoxicated or Sedated No (0 pts) Impaired Gait No (0 pts) Mobility Assist Device Used No (0 pt) Altered Elimination No (0 pt) Score/Fall Risk Level 0 - 2 = Low Risk Oriented to surroundings, Maintained a safe environment, Hourly rounding (assess needs \T\ fall precautionary measures) done. Abuse screen: Denies threats or abuse. Nutritional screening: No deficits noted. Tuberculosis screening: No symptoms or risk factors identified. Assessment: 20:20 General: Appears uncomfortable, Behavior is calm, cooperative, appropriate for age. rg5 Pain: Complains of pain in head Pain currently is 7 out of 10 on a pain scale. Quality of pain is described as aching, Pain began 1 hour ago. 20:20 Neuro: Level of Consciousness is awake, alert, obeys commands, Oriented to person, rg5 place, time. Cardiovascular: Capillary refill < 3 seconds Patient's skin is warm and dry. Rhythm is sinus tachycardia. Respiratory: Airway is patent Trachea midline Respiratory effort is even, unlabored, Respiratory pattern is regular. GI: Abdomen is round non-distended. : No signs and/or symptoms were reported regarding the genitourinary system. EENT: No signs and/or symptoms were reported regarding the EENT system. Derm: Skin is red, Skin temperature is warm. Musculoskeletal: Circulation, motion, and sensation intact. Range of motion: intact in all extremities. 20:30 Respiratory: Breath sounds are clear bilaterally. rg5 21:30 Reassessment: Patient and/or family updated on plan of care and expected duration. Pain rg5 level reassessed. Patient is alert, oriented x 3, equal unlabored respirations, skin warm/dry/pink. 22:30 Reassessment: Patient and/or family updated on plan of care and expected duration. Pain rg5 level reassessed. Patient is alert, oriented x 3, equal unlabored respirations, skin warm/dry/pink. Patient states symptoms have improved. 23:33 Reassessment: Patient and/or family updated on plan of care and expected duration. Pain rg5 level reassessed. Patient is alert, oriented x 3, equal unlabored respirations, skin warm/dry/pink. Patient denies pain at this time. Patient states feeling better. 11/10 00:15 Reassessment: Patient is alert, oriented x 3, equal unlabored respirations, skin rg5 warm/dry/pink. Patient states feeling better. Vital Signs: 11/09 20:20 BP 176 / 76; Pulse 124; Resp 18; Temp 98.6; Pulse Ox 93% ; Weight 115 kg; Height 5 ft. vc1 6 in. ; Pain 5/10; 21:32 BP 143 / 65; Pulse 124; Resp 18; Pulse Ox 97% on R/A; Pain 5/10; rg5 21:59 Temp 102.7(O); ty 22:10 BP 124 / 62; Pulse 118; Resp 19; Temp 102.7; Pulse Ox 98% on R/A; Pain 0/10; rg5 23:45 BP 133 / 46; Pulse 104; Resp 17; Temp 98.3(O); Pulse Ox 99% on R/A; Pain 0/10; rg5 20:20 Body Mass Index 40.92 (115.00 kg, 167.64 cm) vc1 20:20 Pain Scale: Adult vc1 21:32 Pain Scale: Adult rg5 22:10 Pain Scale: Adult rg5 23:45 Pain Scale: Adult rg5 [place] Coma Score: 20:20 Eye Response: spontaneous(4). Motor Response: obeys commands(6). Verbal Response: rg5 oriented(5). Total: 15. ED Course: 20:04 Patient arrived in ED. im 20:05 Awais Saavedra MD is Attending Physician. rt 20:11 Inserted saline lock: 20 gauge in right antecubital area, using aseptic technique. ty Blood collected. Flushed with 10 mL NS. 20:13 Ray Clancy, RN is Primary Nurse. rg5 20:20 No provider procedures requiring assistance completed. rg5 20:20 Patient has correct armband on for positive identification. Call light in reach. Side rg5 rails up X 1. Adult w/ patient. 20:23 Triage completed. vc1 20:30 Door closed. Noise minimized. Verbal reassurance given. rg5 20:35 XRAY Chest (1 view) In Process Unspecified. EDMS 23:05 CT Chest For PE Angio In Process Unspecified. EDMS 10 00:32 IV discontinued, bleeding controlled, No redness/swelling at site. Pressure dressing rg5 applied. 00:32 Patient post er care. rg5 00:33 Provided Education on: post er care. rg5 Administered Medications: 11/09 20:15 Drug: Famotidine IVP 20 mg IVP once; dilute with 10 mL 0.9% NaCl; give over 2 minutes rg5 Route: IVP; Site: right antecubital; 21:30 Follow up: Response: No adverse reaction rg5 20:15 Drug: MethylPrednisoLONE IVP 125 mg IVP once Route: IVP; Site: right antecubital; rg5 22:30 Follow up: Response: No adverse reaction rg5 20:15 Drug: Albuterol Inhalation 7.5 mg Inhalation once Route: Inhalation; rg5 20:15 Drug: NS 0.9% IV 1000 ml IV at 1 bolus Per protocol; 1000 mL bolus Route: IV; Rate: 1 rg5 bolus; Site: right antecubital; 21:00 Follow up: IV Status: Completed infusion; IV Intake: 1000ml rg5 20:20 Drug: EPINEPHrine 1:1000 Sub-Q 1:1,000 0.3 ml Sub-Q once Route: Sub-Q; Site: right rg5 lower abdomen; 22:00 Follow up: Response: No adverse reaction rg5 21:03 Drug: diphenhydrAMINE IVP 50 mg IVP once Route: IVP; Site: right antecubital; rg5 21:30 Follow up: Response: No adverse reaction rg5 22:25 Drug: Acetaminophen PO 1000 mg PO once Route: PO; rg5 23:25 Follow up: Response: No adverse reaction; Temperature is decreased rg5 22:35 Drug: NS 0.9% IV 1000 ml IV at 1 bolus Per protocol; 1000 mL bolus Route: IV; Rate: 1 rg5 bolus; Site: right antecubital; 11/10 00:34 Follow up: IV Status: Completed infusion; IV Intake: 1000ml rg5 11/09 22:37 Drug: Cefepime IVPB 2 grams IVPB at 200 ml/hr once over 30 mins; (mix in NS 100 mL) rg5 Route: IVPB; Rate: 200 ml/hr; Infused Over: 30 mins; Site: right antecubital; 11/10 00:33 Follow up: IV Status: Completed infusion; IV Intake: 100ml rg5 Medication: 11/09 20:20 VIS not applicable for this client. rg5 Intake: 21:00 IV: 1000ml; Total: 1000ml. rg5 11/10 00:33 IV: 100ml; Total: 1100ml. rg5 00:34 IV: 1000ml; Total: 2100ml. rg5 Outcome: 00:16 Discharge ordered by . rt 00:32 Discharged to home ambulatory, rg5 00:32 Condition: stable 00:32 Discharge instructions given to patient, Instructed on discharge instructions, follow up and referral plans. Demonstrated understanding of instructions, follow-up care, medications, Prescriptions given X 3, 00:37 Patient left the ED. rg5 Signatures: Dispatcher [employer] EDMS Serina Montes RN RN vc1 Awais Saavedra MD MD rt Marielle Bean Tylor ty Gallardo, Rommel, RN RN rg5
[2023-11-11 01:32] VITALS: BP 133/46; TEMP 98.3; O2SAT 99
--- NOTE | 2023-11-12 13:02 | EKG ---
Test Date: 2023-11-10 Test Time: 20:54:33 Contract Implementation Analyst: JOSE MEASUREMENT RESULTS: Intervals: Rate: 132 VT: 138 QRSD: 88 QT: 316 QTc: 468 [place]: P: 57 VT: 138 QRS: 109 T: 46 INTERPRETIVE STATEMENTS: Sinus tachycardia Rightward axis Nonspecific T wave abnormality Abnormal ECG Compared to ECG 06/23/2018 04:21:02 Right-axis deviation now present T-wave abnormality now present Sinus rhythm no longer present Sinus arrhythmia no longer present Incomplete right bundle-branch block no longer present Electronically Signed On 11-12-23 12:55:55 CDT by Maurisio De Leon
== END 2023-11-11 00:37 | disposition home or self-care (01) ==
LOC: ER 20:02
DX: R06.00 Dyspnea, unspecified (principal); R50.9 Fever, unspecified; R16.2 Hepatomegaly with splenomegaly, not elsewhere classified
CPT/HCPCS: 36415; 71045; 71275; 80048; 80076; 83605; 83735; 84484; 85025; 85610; 85730; 87040; 93005; 96361; 96365; 96366; 96372; 96375; 99285; J0171; J0692; J1200; J2919; J7030; J7613; Q9967